=== PATIENT | male | born 1940 | race Caucasian/White ===

== ENCOUNTER 2016-06-11 09:37 | Outpatient (CLI) | payer MEDICARE | END 2016-06-11 09:38 | disposition home or self-care (01) | LOC: NAVSJIPCSP 09:37 | PROVIDERS: ATTEND Internal Medicine | DX: E78.5 Hyperlipidemia, unspecified (principal); Z79.899 Other long term (current) drug therapy | CPT/HCPCS: 36415; 80061 ==

== ENCOUNTER 2016-09-10 09:32 | Outpatient (CLI) | payer MEDICARE ==
[2016-09-10 12:36] LABS: Bilirubin Negative (Negative); Blood, Urine Negative (Negative); Clarity Clear (Clear); Glucose, Urine (Dipstick) Negative (Negative); Leukocyte Negative (Negative); Nitrite Negative (Negative); Protein, Urine (Dipstick) Negative (Neg-Trace)
[2016-09-10 12:42] LABS: ALT (SGPT) 14 U/L (8-55); AST (SGOT) 22 U/L (5-34); Albumin 4.1 g/dL (3.4-4.8); Alkaline Phosphatase 70 U/L (40-150); Anion Gap 16 mmol/L (10-20); BUN (Urea Nitrogen) 16 mg/dL (8.4-25.7); Bilirubin, Total 0.9 mg/dL (0.2-1.2); Calc. Creatinine Clearance 0 mL/min (70-130); Calcium 9.1 mg/dL (7.8-10.44); Carbon Dioxide 25 mmol/L (23-31); Cardiac Risk 2.2 (Less than 4.5); Chloride 100 mmol/L (98-107); Cholesterol 178 mg/dl (< 200 Desired); Estimated GFR-MDRD 54; Globulin 2.9 g/dL (2.4-3.5); Glucose 94 mg/dL (83-110); HDL Cholesterol 80 mg/dL (>60 Neg Risk); LDL Cholesterol, Calculated 85 mg/dL; Potassium 4.9 mmol/L (3.5-5.1); Sodium 136 mmol/L (136-145); Triglycerides 63 mg/dL (Less than 150)
[2016-09-10 13:26] LABS: #Basophils 0.1 thou/uL (0.0-0.2); #Eosinphils 0.1 thou/uL (0.0-0.7); #Lymphocytes 1.1 thou/uL (1.20-3.40); #Monocytes 0.5 thou/uL (0.11-0.59); #Neutrophils 3.1 thou/uL (1.40-6.50); %Basophils 1.5 % (0.0-1.0); %Lymphocytes 22.4 % (21.0-51.0); %Monocytes 10.8 % (0.0-10.0); %Neutrophils 62.3 % (42.0-75.0); Hemoglobin 13.5 g/dL (14.0-18.0); Mean Corpuscular HGB CONC 31.9 g/dL (32.0-36.0); Mean Corpuscular Hemoglobin 30.6 pg (27.0-31.0); Mean Corpuscular Volume 95.9 fl (80.0-94.0); Mean Platelet Volume 9.7 fL (7.4-10.4); PLT Morphology Comment Appears Adequate; Platelet Count 221 thou/uL (130-400); RBC Distribution Width 12.9 % (11.5-14.5); RBC Morphology Normal; Red Blood Cell (RBC) Count 4.42 mill/uL (4.70-6.10); White Blood Cell (WBC) Count 4.9 thou/uL (4.8-10.8)
== END 2016-09-10 09:33 | disposition home or self-care (01) ==
LOC: NAVSJIPCSP 09:32
PROVIDERS: ATTEND Internal Medicine
DX: Z12.5 Encounter for screening for malignant neoplasm of prostate (principal); I48.2 Chronic atrial fibrillation; N18.2 Chronic kidney disease, stage 2 (mild); I25.10 Atherosclerotic heart disease of native coronary artery without angina pectoris; E78.5 Hyperlipidemia, unspecified; Z79.899 Other long term (current) drug therapy
CPT/HCPCS: 36415; 80053; 80061; 81003; 85025; G0103

== ENCOUNTER 2016-12-30 07:40 | Outpatient (CLI) | payer MEDICARE ==
[2016-12-30 08:12] LABS: #Basophils 0.1 thou/uL (0.0-0.2); #Eosinphils 0.3 thou/uL (0.0-0.7); #Lymphocytes 1.1 thou/uL (1.20-3.40); #Monocytes 0.6 thou/uL (0.11-0.59); #Neutrophils 4.4 thou/uL (1.40-6.50); %Basophils 1.3 % (0.0-1.0); %Eosinophils 3.9 % (0.0-10.0); %Lymphocytes 16.3 % (21.0-51.0); %Monocytes 9.9 % (0.0-10.0); %Neutrophils 68.6 % (42.0-75.0); Hemoglobin 13.3 g/dL (14.0-18.0); Mean Corpuscular HGB CONC 31.6 g/dL (32.0-36.0); Mean Corpuscular Hemoglobin 29.7 pg (27.0-31.0); Mean Corpuscular Volume 93.7 fl (80.0-94.0); Mean Platelet Volume 10.1 fL (7.4-10.4); Platelet Count 198 thou/uL (130-400); RBC Distribution Width 12.7 % (11.5-14.5); White Blood Cell (WBC) Count 6.5 thou/uL (4.8-10.8)
[2016-12-30 08:28] LABS: ALT (SGPT) 7 U/L (8-55); AST (SGOT) 22 U/L (5-34); Albumin 3.9 g/dL (3.4-4.8); Alkaline Phosphatase 86 U/L (40-150); Anion Gap 15 mmol/L (10-20); BUN (Urea Nitrogen) 18 mg/dL (8.4-25.7); Bilirubin, Total 0.7 mg/dL (0.2-1.2); Calc. Creatinine Clearance 0 mL/min (70-130); Calcium 8.8 mg/dL (7.8-10.44); Carbon Dioxide 25 mmol/L (23-31); Chloride 101 mmol/L (98-107); Estimated GFR-MDRD 53; Globulin 2.6 g/dL (2.4-3.5); Glucose 106 mg/dL (83-110); Potassium 4.7 mmol/L (3.5-5.1); Protein, Total 6.5 g/dL (5.8-8.1); Sodium 136 mmol/L (136-145)
== END 2016-12-30 07:41 | disposition home or self-care (01) ==
LOC: NAV LAB 07:40
PROVIDERS: ATTEND Internal Medicine Cardiovascular Disease
DX: I48.0 Paroxysmal atrial fibrillation (principal); N18.3 Chronic kidney disease, stage 3 (moderate)
CPT/HCPCS: 36415; 80053; 85025

== ENCOUNTER 2025-01-05 09:56 | Outpatient (CLI) | payer SELFPAY | END 2025-01-05 09:57 | disposition home or self-care (01) | LOC: NAV LAB 09:56 | PROVIDERS: ATTEND Pathology Anatomic Pathology & Clinical Pathology | DX: Z00.00 Encounter for general adult medical examination without abnormal findings (principal) | CPT/HCPCS: 86480 ==

== ENCOUNTER 2025-01-05 10:10 | Outpatient (CLI) | payer MEDICARE | END 2025-01-05 10:11 | disposition home or self-care (01) | LOC: NAV RAD 10:10 | PROVIDERS: ATTEND Student in an Organized Health Care Education/Training Program | DX: Z09 Encounter for follow-up examination after completed treatment for conditions other than malignant neoplasm (principal); Z86.11 Personal history of tuberculosis | CPT/HCPCS: 71045 ==